=== PATIENT | male | born 1975 | race Caucasian/White ===

== ENCOUNTER 2019-02-13 13:55 | Emergency (ER) | payer OTHER ==
[2019-02-13 14:12] VITALS: TEMP 98.7
--- NOTE | 2019-02-13 14:48 | ED ---
General Adult HPI - General Chief complaint: Recheck/Abnormal Lab/Rx Stated complaint: High BP Time Seen by Provider: 02/13/19 14:17 Source: patient Mode of arrival: ambulatory Limitations: no limitations - History of Present Illness Initial comments: Dictation was produced using [employer] dictation software. please excuse any grammatical, word or spelling errors. Chief Complaint: 43-year-old male presents with abnormal blood pressure. History of Present Illness: She is a 43-year-old male has been having urinary type symptoms for the last 3-4 days. Patient was seen at the urgent care were was initially evaluated. Patient has been taking Tylenol Cold medications for the last couple days. Patient was evaluated at urgent care and told to come to the emergency department after his blood pressure was found to be significantly elevated. Patient is a history of hypertension. Patient is a tobacco user continues to smoke. Patient surgery prior to his blood pressure being measured at urgent care. Patient has been taking Tylenol Cold medicationsDictation was produced using [employer] dictation software. please excuse any grammatical, word or spelling errors. Chief Complaint: 43-year-old male presents with abnormal blood pressure. History of Present Illness: She is a 43-year-old male has been having urinary type symptoms for the last 3-4 days. Patient was seen at the urgent care were was initially evaluated. Patient has been taking Tylenol Cold medications for the last couple days. Patient was evaluated at urgent care and told to come to the emergency department after his blood pressure was found to be significantly elevated. Patient is a history of hypertension. Patient is a tobacco user continues to smoke. Patient surgery prior to his blood pressure being measured at urgent care. Patient has been taking Tylenol Cold medications. Patient reports he has a long standing history of hypertension. hasnt seen a doctor about it. he doesn't have a PCP. The ROS documented in this emergency department record has been reviewed and confirmed by me. Those systems with pertinent positive or negative responses have been documented in the HPI. All other systems are other negative and/or noncontributory. PHYSICAL EXAM: General Impression: Alert and oriented x3, not in acute distress HEENT: Normocephalic atraumatic, extra-ocular movements intact, pupils equal and reactive to light bilaterally, mucous membranes moist. Cardiovascular: Heart regular rate and rhythm, S1&S2 audible, no murmurs, rubs or gallops Chest: Lungs clear to auscultation bilaterally, no rhonchi, no wheeze, no rales Abdomen: Bowel sounds present, abdomen soft, non-tender, non-distended, no or ganomegaly Musculoskeletal: Pulses present and equal in all extremities, no peripheral edema Motor: no focal deficits noted Neurological: CN II-XII grossly intact, no focal motor or sensory deficits noted Skin: Intact with no visualized rashes Psych: Normal affect and mood ED course: 43-year-old male presents with elevated blood pressure after being seen at the urgent care for URI type symptoms. He has been taking Tylenol Cold medications. As upon arrival shows blood pressure 216 121, rest vital signs within acceptable limits. Patient does not have any symptoms to suggest hypertensive emergency at this time. Patient's symptoms likely secondary to stimulant-containing cold medications. Patient's hypertension is likely long- standing. Patient will be started on hydrochlorothiazide. He is urged to follow up with primary care physician. Told to avoid pseudoephedrine containing medications. Patient given Rocephin IV prior to discharge. Was given some labetalol prior to discharge. EKG interpretation: Ventricular rate 80, normal sinus rhythm, PA interval 138, QS 96, QTC 426. No PA prolongation, no QTC prolongation, no ST or T-wave changes noted. Overall, this EKG is unremarkable - Related Data Home Medications Medication Instructions Recorded Confirmed Naproxen Sodium [Aleve] 220 mg PO DAILY 02/13/19 02/13/19 Previous Rx's Medication Instructions Recorded Hydrochlorothiazide [Hydrodiuril] 12.5 mg PO DAILY #20 cap 02/13/19 Allergies Allergy/AdvReac Type Severity Reaction Status Date / Time No Known Allergies Allergy Verified 02/13/19 14:39 Review of Systems ROS Statement: Those systems with pertinent positive or pertinent negative responses have been documented in the HPI. ROS Other: All systems not noted in ROS Statement are negative. Past Medical History Past Medical History: No Reported History History of Any Multi-Drug Resistant Organisms: None Reported Past Surgical History: Appendectomy, Orthopedic Surgery Additional Past Surgical History / Comment(s): lt forearm x 2 Past Psychological History: No Psychological Hx Reported Smoking Status: Current every day smoker Past Alcohol Use History: Occasional Past Drug Use History: None Reported General Exam Limitations: no limitations Course Vital Signs 02/13/19 02/13/19 14:09 14:55 Temperature 98.7 F Pulse Rate 91 81 Respiratory 22 18 Rate Blood Pressure 216/121 201/125 O2 Sat by Pulse 99 95 Oximetry Medical Decision Making - Lab Data Result diagrams: 02/13/19 14:49 Lab Results 02/13/19 Range/Units 14:49 Sodium 141 (137-145) mmol/L Potassium 4.3 (3.5-5.1) mmol/L Chloride 106 (98-107) mmol/L Carbon Dioxide 29 (22-30) mmol/L Anion Gap 6 mmol/L BUN 19 (9-20) mg/dL Creatinine 1.20 (0.66-1.25) mg/dL Est GFR (CKD-EPI)AfAm 85 (>60 ml/min/1.73 sqM) Est GFR (CKD-EPI)NonAf 73 (>60 ml/min/1.73 sqM) Glucose 88 (74-99) mg/dL Calcium 9.9 (8.4-10.2) mg/dL Disposition Clinical Impression: Hypertension Disposition: HOME SELF-CARE Condition: Good Instructions (If sedation given, give patient instructions): Chronic Hypertension (ED) Prescriptions: Hydrochlorothiazide [Hydrodiuril] 12.5 mg PO DAILY #20 cap Is patient prescribed a controlled substance at d/c from ED?: No Referrals: Jose Miguel Guerrero MD [REFERRING] - 1-2 days Time of Disposition: 15:29
[2019-02-13 14:55] VITALS: RESP 18
--- NOTE | 2019-02-13 15:07 | XR ---
EXAMINATION TYPE: XR chest 1V portable DATE OF EXAM: 02/13/2019 COMPARISON: NONE HISTORY: Hypertension, cough TECHNIQUE: Single frontal view of the chest is obtained. FINDINGS: There is no focal air space opacity, pleural effusion, or pneumothorax seen. The cardiac silhouette size is within normal limits. The osseous structures are intact. IMPRESSION: No acute process.
[2019-02-13 15:13] LABS: Calcium 9.9 mg/dL (8.4-10.2); Potassium 4.3 mmol/L (3.5-5.1)
[2019-02-13] MEDS ORDERED: cefTRIAXone IN SWFI 1,000 MG/10 ML SYRINGE IVP STA (15:18)
[2019-02-13] MEDS: LABETALOL 5 MG/ML VIAL MDV IVP STA ×2 (15:49→15:53)
[2019-02-13 16:34] VITALS: BP 189/117; PULSE 75
== END 2019-02-13 16:33 | disposition home or self-care (01) ==
LOC: EC 13:55
DX: I10 Essential (primary) hypertension (principal); F17.200 Nicotine dependence, unspecified, uncomplicated
CPT/HCPCS: 36415; 93005; 80048; 71045; 99284; 96374; 96375; J0696

== ENCOUNTER → 2024-05-20 | Outpatient (CLI) | payer OTHER ==
--- NOTE | 2024-05-20 18:33 | CTL ---
EXAMINATION TYPE: CT Low Dose Lung DATE OF EXAM: 05/20/2024 6:22 PM COMPARISON: None. CLINICAL INDICATION: Male, 49 years old with history of Z12.2 Screening; F17.210 CURRENT SMOKER; smok er, history of tobacco use. TECHNIQUE: Multiple axial non-contrast scans were obtained from approximately the lung apices through the upper abdomen. Coronal and sagittal reformatted images were obtained. Low dose technique was uti lized. MIP were created on a separate workstation and submitted for review. CT DLP: 87.1 mGycm, Automated exposure control for dose reduction was used. CT Contrast: Contrast used: None Oral contrast used: None FINDINGS: Lack of intravenous contrast and low dose technique limits the evaluation of the vascular and soft ti ssue structures. LUNGS: No evidence of pulmonary fibrosis. No evidence of focal consolidation, pneumothorax or pleural effusion. Centrilobular emphysema changes. Nodules: RUL: None. RML: None. RLL: 3 mm series 3 image 23. 4 mm cyst image 219. SHERRILL: None. LLL: 5 mm series 3 image 197, 3 mm image 207, 5 mm image 220 AIRWAY: Patent and unremarkable. HEART: Size within normal limits. MEDIASTINUM: No gross evidence of adenopathy. VASCULATURE: No aortic aneurysm. MUSCULOSKELETAL: No acute osseous abnormalities SOFT TISSUES/LYMPH NODES: Bilateral gynecomastia LOWER NECK: No significant findings. UPPER ABDOMEN: Diffuse low-attenuation to the liver parenchyma. IMPRESSION: 1. No clinically significant pulmonary nodules. 2. Mild emphysema. 3. Hepatic steatosis. CT LUNG RAD AND CT CHEST RECOMMENDATION: Lung-Rad 2 Benign Appearance or Behavior: Continue annual sc reening with LDCT in 12 months. S Modifier (other clinically significant findings): None Recommend smoking cessation (if current smoker), or continuation of smoking cessation (if prior smoke r). Annual screening for lung cancer with low-dose computed tomography is recommended in adults ages 55 to 77 years who have a 30 pack-year smoking history and currently smoke or have quit within the pa st 15 years. Screening should be discontinued once a person has not smoked for 15 years or develops a health problem that substantially limits life expectancy or the ability or willingness to have curat lanette lung surgery. Lung rads 2021 [email or web address] [facility], , 05/20/2024 6:30 PM
== END | disposition home or self-care (01) ==
LOC: RADCTMAIN 17:33
PROVIDERS: ATTEND Family Medicine
DX: Z12.2 Encounter for screening for malignant neoplasm of respiratory organs (principal); F17.210 Nicotine dependence, cigarettes, uncomplicated; J43.9 Emphysema, unspecified; K76.89 Other specified diseases of liver; Z82.49 Family history of ischemic heart disease and other diseases of the circulatory system; I10 Essential (primary) hypertension
CPT/HCPCS: 71271